=== PATIENT | male | born 1975 | race Caucasian/White ===

== ENCOUNTER → 2020-07-02 | Outpatient (CLI) | payer BC ==
[~2020-07-02] MED LIST: CATHETER FLUSH 10 ML SYR IV PRN; morphine INJ 10 MG/ML 1ML (SYR OR VIAL) IVP STA; morphine INJ 10 MG/ML 1ML (SYR OR VIAL) ONE
--- NOTE | 2020-07-02 15:37 | Diagnostic Imaging Report ---
INDICATION: Abdominal pain Hepatobiliary scan 5.44 mCi of technetium 99m Choletec was given intravenously. 2 mg of morphine was given intravenously at 1 hour. 1 mCi of Choletec was then repeated, following the morphine injection. There is homogeneous uptake of isotope throughout the liver. The common duct is patent. There is faint activity seen in the gallbladder until the morphine was administered at which time there was prompt uptake in the gallbladder. IMPRESSION: Unremarkable hepatobiliary scan Dictated by: Dictated on workstation # [id number]
== END ==
LOC: CARD 13:00
PROVIDERS: ATTEND Family Medicine
DX: R19.7 Diarrhea, unspecified (principal); R10.9 Unspecified abdominal pain
CPT/HCPCS: 78226; A9537